=== PATIENT | male | born 1965 | race Caucasian/White ===

== ENCOUNTER 2016-12-31 08:22 | Emergency (ER) | payer BC, OTHER ==
[~2016-12-31] VITALS: Ht 167.6 cm; Wt 106.1 kg
--- NOTE | 2016-12-31 08:40 | NUR ---
Pt ambulatory to bed 3 , dr yadav at bedside for exam.
[2016-12-31 09:39] VITALS: BP 128/82
== END 2016-12-31 09:42 | disposition home or self-care (01) ==
LOC: ER 08:22
DX: M25.551 Pain in right hip (principal); E78.5 Hyperlipidemia, unspecified; Z88.6 Allergy status to analgesic agent; Z88.8 Allergy status to other drugs, medicaments and biological substances
CPT/HCPCS: 73502; A4663

== ENCOUNTER 2022-07-02 08:16 | Outpatient (CLI) | payer BC, OTHER | END 2022-07-02 23:59 | disposition home or self-care (01) | LOC: RAD 08:16 | PROVIDERS: ATTEND Family Medicine | DX: I65.23 Occlusion and stenosis of bilateral carotid arteries (principal); I70.0 Atherosclerosis of aorta | CPT/HCPCS: 93880; 93978 ==